=== PATIENT | male | born 1985 | race American Indian/Alaskan Native ===

== ENCOUNTER 2016-12-17 00:34 | Emergency (ER) | payer OTHER ==
[2016-12-17] MEDS ORDERED: TYLENOL ONE (00:44)
[2016-12-17] MEDS ORDERED: TYLENOL PO ONE (00:46)
[2016-12-17 04:13] VITALS: BP 117/66
[2016-12-17] MEDS ORDERED: DECADRON IM ONE (05:30)
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
--- NOTE | 2016-12-17 06:07 | XRay Report ---
FINAL REPORT EXAM: XR SPINE CERVICAL 2-3V HISTORY: pain of cervical spine COMPARISONS: None FINDINGS: Three views of the cervical spine Cervical lordosis is within normal limits. Vertebral body heights and intervertebral disc spaces are preserved. No fractures. Prevertebral soft tissues are within normal limits. Incomplete evaluation of the lung apices is unremarkable. IMPRESSION: Unremarkable cervical spine radiographs. Consider additional imaging including CT/MRI for worsening/persistent symptoms.
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
== END 2016-12-17 06:06 | disposition home or self-care (01) ==
LOC: ED 00:34
DX: M54.2 Cervicalgia (principal); M54.5 Low back pain; V89.2XXA Person injured in unspecified motor-vehicle accident, traffic, initial encounter; Y93.89 Activity, other specified; Y99.9 Unspecified external cause status; Y92.410 Unspecified street and highway as the place of occurrence of the external cause
CPT/HCPCS: 72040; 72100; 96372; 99283; J1100